=== PATIENT | female | born 1975 | race African-American/Black ===

== ENCOUNTER 2019-07-06 15:27 | Inpatient (IN) ==
[2019-07-06] MEDS ORDERED: ONDANSETRON 4 MG/2 ML VIAL IV STA (16:10)
[2019-07-06] MEDS ORDERED: ONDANSETRON 4 MG/2 ML VIAL ONE (16:14)
[2019-07-06] MEDS ORDERED: AZITHROMYCIN 250 MG TABLET PO STA (16:29)
[2019-07-06] MEDS ORDERED: cefTRIAXone 1,000 MG in SODIUM CHLORIDE 0.9% 100 ML IV STA (16:29)
[2019-07-06 16:36] LABS: Basophils % 0.1 % (0.0-0.8); Hematocrit 39.4 VOL% (35.7-47.0); Hemoglobin 12.8 GM/DL (12.0-16.0); Immature Granulocytes % 0.4 %; Immature Granulocytes Absolute 0.03 #; Lymphocytes # 1.2 10*3/uL (1.4-4.0); Lymphocytes % 17.3 % (21.3-54.2); Mean Corpuscular HGB Conc 32.5 GM/DL (32-36); Mean Corpuscular Volume 84.5 FL (87-102); Mean Platelet Volume 9.2 FL (9.6-12.0); Neutrophils % 78.2 % (38.7-73.9); Platelet Count 281 T/CUMM (130-400); Red Blood Count 4.66 MC/CUMM (3.8-5.5); Red Cell Distribution Width 14.5 % (9.3-17.3); White Blood Count 6.7 T/CUMM (4-12)
[2019-07-06 16:51] LABS: Alanine Aminotransferase 22 U/L (13-56); Albumin 3.1 G/DL (3.4-5.0); Alkaline Phosphatase 122 U/L (45-117); Aspartate Amino Transferase 15 U/L (0-37); Blood Urea Nitrogen 4 MG/DL (7-18); Calcium 8.9 MG/DL (8.5-10.1); Estimated Glom Filtration Rate 187 ML/MIN; Glucose 187 MG/DL (74-106); Osmolality,Calculated 267.4 MOS/KG (273-304); Total Protein 8.1 G/DL (6.4-8.3)
[2019-07-06] MEDS ORDERED: SODIUM CHLORIDE 0.9% 1,000 ML IV STA (17:08)
[2019-07-06] MEDS ORDERED: GLUCAGON 1 MG VIAL IM PRN ×3 (18:12→18:22)
[2019-07-06] MEDS ORDERED: DEXTROSE 10% 250 ML BAG IV PRN (18:12)
[2019-07-06] MEDS ORDERED: DEXTROSE 50% 25 GM/50 ML VIAL IV PRN (18:12)
[2019-07-06] MEDS ORDERED: DEXTROSE 50% 25 GM/50 ML SYRINGE IV PRN (18:22)
[2019-07-06] MEDS ORDERED: SODIUM CHLORIDE 0.9% 100 ML IV ONE (19:10)
[2019-07-06] MEDS ORDERED: PIPERACILLIN/TAZOBACTAM 3,375 MG VIAL IV ONE (19:10)
[2019-07-06] MEDS: PIPERACILLIN/TAZOBACTAM 3,375 MG in SODIUM CHLORIDE 0.9% 100 ML IV SCH (19:20)
[2019-07-06] MEDS: ONDANSETRON 4 MG/2 ML VIAL IV PRN (20:05)
[2019-07-06] MEDS: SODIUM CHLORIDE 0.9% 1,000 ML IV SCH (20:20)
[2019-07-06] MEDS: INSULIN LISPRO 100 UNIT/ML SUBCUT SCH (21:10)
[2019-07-06] MEDS ORDERED: ZINC SULFATE 220 MG CAPSULE PO SCH (21:30)
[2019-07-06] MEDS: HYDROXYCHLOROQUINE 200 MG TABLET PO SCH (22:15)
[2019-07-06] MEDS: ENOXAPARIN 40 MG/0.4 ML SYRINGE SUBCUT SCH (22:15)
[2019-07-06] MEDS: ACETAMINOPHEN 325 MG TABLET PO PRN (22:45)
[2019-07-07] MEDS: PIPERACILLIN/TAZOBACTAM 3,375 MG in SODIUM CHLORIDE 0.9% 100 ML IV SCH ×3 (03:15→17:45)
[2019-07-07 03:22] LABS: Basophils % 0.2 % (0.0-0.8); Hematocrit 36.1 VOL% (35.7-47.0); Hemoglobin 11.7 GM/DL (12.0-16.0); Immature Granulocytes % 0.2 %; Immature Granulocytes Absolute 0.01 #; Lymphocytes # 1.3 10*3/uL (1.4-4.0); Lymphocytes % 22.2 % (21.3-54.2); Mean Corpuscular HGB Conc 32.4 GM/DL (32-36); Mean Corpuscular Volume 83.6 FL (87-102); Mean Platelet Volume 9.6 FL (9.6-12.0); Monocytes % 4.8 % (1.7-12.7); Neutrophils % 72.6 % (38.7-73.9); Platelet Count 246 T/CUMM (130-400); Red Blood Count 4.32 MC/CUMM (3.8-5.5); Red Cell Distribution Width 14.6 % (9.3-17.3)
[2019-07-07 03:51] LABS: Albumin 2.7 G/DL (3.4-5.0); Bilirubin,Total 0.8 MG/DL (0.2-1.0); Calcium 8.4 MG/DL (8.5-10.1); Risk Ratio 3.88; Thyroid Stimulating Hormone 0.671 uIU/ml (0.358-3.74); Total Protein 7.1 G/DL (6.4-8.3); VLDL CHOLESTEROL 21.4 MG/DL
[2019-07-07] MEDS: ACETAMINOPHEN 325 MG TABLET PO PRN ×3 (08:30→17:54)
[2019-07-07] MEDS: INSULIN LISPRO 100 UNIT/ML SUBCUT SCH ×4 (08:30→21:36)
[2019-07-07] MEDS ORDERED: AZITHROMYCIN INJ 500 MG in SODIUM CHLORIDE 0.9% 250 ML IV SCH (09:00)
[2019-07-07] MEDS: HYDROXYCHLOROQUINE 200 MG TABLET PO SCH ×2 (09:14→21:38)
[2019-07-07] MEDS: ONDANSETRON 4 MG/2 ML VIAL IV PRN (09:15)
[2019-07-07] MEDS ORDERED: POTASSIUM CHLORIDE 20 MEQ TABLET PO ONE (10:28)
[2019-07-07] MEDS ORDERED: MAGNESIUM SULF RIDER 2 GM in PREMIX 1 EACH IV ONE (10:46)
[2019-07-07] MEDS: PROMETHAZINE INJ 12.5 MG in SODIUM CHLORIDE 0.9% 50 ML IV PRN (17:51)
[2019-07-07] MEDS: ENOXAPARIN 40 MG/0.4 ML SYRINGE SUBCUT SCH (21:37)
[2019-07-08] MEDS: ALBUTEROL INHALER 8 GM INH SCH ×4 (00:34→20:26)
[2019-07-08] MEDS: PROMETHAZINE INJ 12.5 MG in SODIUM CHLORIDE 0.9% 50 ML IV PRN ×2 (01:49→20:27)
[2019-07-08] MEDS: PIPERACILLIN/TAZOBACTAM 3,375 MG in SODIUM CHLORIDE 0.9% 100 ML IV SCH ×3 (02:37→17:38)
[2019-07-08] MEDS: SODIUM CHLORIDE 0.9% 1,000 ML IV SCH ×2 (02:46→02:49)
[2019-07-08 03:29] LABS: Hematocrit 35.9 VOL% (35.7-47.0); Hemoglobin 11.6 GM/DL (12.0-16.0); Immature Granulocytes % 0.3 %; Immature Granulocytes Absolute 0.02 #; Lymphocytes # 1.2 10*3/uL (1.4-4.0); Mean Corpuscular HGB Conc 32.3 GM/DL (32-36); Mean Corpuscular Volume 83.9 FL (87-102); Mean Platelet Volume 9.4 FL (9.6-12.0); Monocytes % 3.7 % (1.7-12.7); Platelet Count 234 T/CUMM (130-400); Red Blood Count 4.28 MC/CUMM (3.8-5.5); Red Cell Distribution Width 14.4 % (9.3-17.3); White Blood Count 5.9 T/CUMM (4-12)
[2019-07-08 04:22] LABS: Albumin 2.6 G/DL (3.4-5.0); Bilirubin,Total 0.5 MG/DL (0.2-1.0); Osmolality,Calculated 278.7 MOS/KG (273-304); Total Protein 6.6 G/DL (6.4-8.3)
[2019-07-08 09:07] LABS: Ferritin 269.9 ng/ml (8-252)
[2019-07-08] MEDS: ZINC SULFATE 220 MG CAPSULE PO SCH (09:50)
[2019-07-08] MEDS: HYDROXYCHLOROQUINE 200 MG TABLET PO SCH ×2 (09:50→20:26)
[2019-07-08] MEDS: INSULIN LISPRO 100 UNIT/ML SUBCUT SCH ×4 (10:20→20:40)
[2019-07-08] MEDS ORDERED: ONDANSETRON ODT 4 MG TABLET PO PRN (11:32)
[2019-07-08] MEDS: ONDANSETRON 4 MG/2 ML VIAL IV PRN ×2 (13:00→17:15)
[2019-07-08] MEDS: ENOXAPARIN 40 MG/0.4 ML SYRINGE SUBCUT SCH (20:26)
[2019-07-08] MEDS: ACETAMINOPHEN 325 MG TABLET PO PRN (20:27)
[2019-07-09] MEDS: ALBUTEROL INHALER 8 GM INH SCH ×4 (01:35→20:30)
[2019-07-09] MEDS: ONDANSETRON 4 MG/2 ML VIAL IV PRN (02:51)
[2019-07-09] MEDS: PIPERACILLIN/TAZOBACTAM 3,375 MG in SODIUM CHLORIDE 0.9% 100 ML IV SCH ×3 (02:56→19:20)
[2019-07-09 03:38] LABS: Basophils % 0.2 % (0.0-0.8); Hematocrit 34.3 VOL% (35.7-47.0); Hemoglobin 11.3 GM/DL (12.0-16.0); Immature Granulocytes % 0.3 %; Immature Granulocytes Absolute 0.02 #; Lymphocytes # 1.2 10*3/uL (1.4-4.0); Lymphocytes % 19.2 % (21.3-54.2); Mean Corpuscular HGB Conc 32.9 GM/DL (32-36); Mean Corpuscular Volume 83.7 FL (87-102); Mean Platelet Volume 9.4 FL (9.6-12.0); Monocytes % 3.5 % (1.7-12.7); Neutrophils % 76.8 % (38.7-73.9); Platelet Count 250 T/CUMM (130-400); Red Cell Distribution Width 14.4 % (9.3-17.3); White Blood Count 6.4 T/CUMM (4-12)
[2019-07-09 04:05] LABS: Calcium 8.4 MG/DL (8.5-10.1); Osmolality,Calculated 270.2 MOS/KG (273-304)
[2019-07-09] MEDS: HYDROXYCHLOROQUINE 200 MG TABLET PO SCH ×2 (09:45→20:30)
[2019-07-09] MEDS: ACETAMINOPHEN 325 MG TABLET PO PRN (09:45)
[2019-07-09] MEDS: INSULIN LISPRO 100 UNIT/ML SUBCUT SCH ×3 (09:46→19:18)
[2019-07-09] MEDS: PROMETHAZINE INJ 12.5 MG in SODIUM CHLORIDE 0.9% 50 ML IV PRN ×2 (13:00→17:48)
[2019-07-09] MEDS: SODIUM CHLORIDE 0.9% 1,000 ML IV SCH ×2 (17:45→20:17)
[2019-07-09] MEDS ORDERED: clonazePAM 0.5 MG TABLET PO PRN (19:24)
[2019-07-09] MEDS: ENOXAPARIN 40 MG/0.4 ML SYRINGE SUBCUT SCH (20:30)
[2019-07-09] MEDS ORDERED: traZODone 50 MG TABLET PO SCH (21:00)
[2019-07-10] MEDS: INSULIN LISPRO 100 UNIT/ML SUBCUT SCH ×2 (00:15→09:51)
[2019-07-10] MEDS: PIPERACILLIN/TAZOBACTAM 3,375 MG in SODIUM CHLORIDE 0.9% 100 ML IV SCH (00:16)
[2019-07-10] MEDS: ALBUTEROL INHALER 8 GM INH SCH ×2 (00:17→09:51)
[2019-07-10 07:32] LABS: ABG Base Excess -0.2 MMOL/L (-2.5-2.5); ABG HCO3 24.2 MMOL/L (20-26); ABG Oxygen Saturation 94.7 % (95-100); ABG PH 7.444 (7.35-7.45); ABG PO2 71.5 MM HG (80-95); ABG TCO2 20.7 MMOL/L (23-27)
[2019-07-10] MEDS: ACETAMINOPHEN 325 MG TABLET PO PRN (09:51)
[2019-07-10] MEDS: HYDROXYCHLOROQUINE 200 MG TABLET PO SCH (09:51)
[2019-07-10] MEDS: ZINC SULFATE 220 MG CAPSULE PO SCH (09:51)
[2019-07-10] MEDS: SODIUM CHLORIDE 0.9% 1,000 ML IV SCH (10:51)
[2019-07-10 11:03] VITALS: BP 129/78
== END 2019-07-10 11:04 | disposition hospice, home (50) | DRG 177 ==
LOC: N.ED 15:27 → SUATTDRO 18:11 → N.EDINP 18:11 → N.2W 20:59
PROVIDERS: ADMIT Family Medicine; ATTEND Internal Medicine